=== PATIENT | female | born 1975 | race Caucasian/White ===

== ENCOUNTER 2017-01-14 22:01 | Inpatient (IN) | payer SELFPAY ==
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
[2017-01-14 22:28] LABS: % IMMATURE GRANULYOCYTES 0.6 % (0.0-1.1); ABSOLUTE IMMATURE GRANULOCYTES 0.11 10^3/uL (0.00-0.10); ADD DIFF? NO; ADD MORPH? NO; ADD SCAN? NO; ATYPICAL LYMPHOCYTE FLAG 0 (0-99); FRAGMENT RBC FLAG 0 (0-99); HEMATOCRIT 41.2 % (38.0-47.0); HEMOGLOBIN 14.8 g/dL (12.6-16.3); LEFT SHIFT FLG 0 (0-99); LIPEMIA HEMOLYSIS FLAG 90 (0-99); MEAN CELL HEMOGLOBIN 32.3 pg (27.9-34.1); MEAN CELL HEMOGLOBIN CONCENTR. 35.9 g/dL (32.4-36.7); MEAN PLATELET VOLUME 9.3 fL (8.7-11.7); PLATELET CLUMPS FLAG 0 (0-99); PLATELET COUNT 216 10^3/uL (150-400); RED BLOOD CELL COUNT 4.58 10^6/uL (4.18-5.33); RED CELL DISTRIBUTION WIDTH 12.1 % (11.5-15.2)
[2017-01-14 22:36] LABS: ANION GAP 14 mEq/L (8-16); CALCIUM 10.1 mg/dL (8.5-10.4); CARBON DIOXIDE 21 mEq/l (22-31); CHLORIDE 105 mEq/L (97-110); CREATININE 0.9 mg/dL (0.6-1.0); ETHANOL SERUM < 10 mg/dL (0-10); GLOMERULAR FILTRATION RATE > 60; GLUCOSE 116 mg/dL (70-100); POTASSIUM 3.8 mEq/L (3.5-5.2); SODIUM 140 mEq/L (134-144)
[2017-01-15] MEDS ORDERED: NICOTINE 14 MG/24 HR PATCH TD ONE (02:28)
[2017-01-15] MEDS ORDERED: NICOTINE POLACRILEX 2 MG GUM B PRN (09:07)
[2017-01-15] MEDS ORDERED: NICOTINE 21 MG/24 HR PATCH TD ONE (09:08)
[2017-01-15] MEDS ORDERED: ACETAMINOPHEN 500 MG TAB PO ONE (11:42)
[2017-01-15] MEDS ORDERED: IBUPROFEN 600 MG TAB PO ONE (15:32)
[2017-01-15] MEDS ORDERED: LORazepam 0.5 MG TAB PO PRN (19:54)
[2017-01-15] MEDS ORDERED: MAG HYDROX/AL HYDROX/SIMETH 30 ML UDCUP PO PRN (19:55)
[2017-01-15] MEDS ORDERED: MAGNESIUM HYDROXIDE 30 ML UDCUP PO PRN (19:55)
[2017-01-15] MEDS ORDERED: OLANZapine 10 MG TAB PO PRN (19:56)
[2017-01-15] MEDS: ACETAMINOPHEN 325 MG TAB PO PRN (20:46)
[2017-01-16] MEDS ORDERED: ALBUTEROL 60 PUFFS/8 GM MDI IH PRN (08:34)
[2017-01-16] MEDS: ACETAMINOPHEN 325 MG TAB PO PRN ×2 (08:39→20:57)
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
[2017-01-16] MEDS: NICOTINE POLACRILEX 2 MG GUM B PRN (19:07)
[2017-01-16] MEDS: OLANZapine DISINTEGR 10 MG TAB PO SCH (20:25)
[2017-01-16 21:35] LABS: COLOR YELLOW; LEUKOCYTE ESTERASE,URINE TRACE (NEGATIVE); NITRITE,URINE NEGATIVE (NEGATIVE)
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
[2017-01-17] MEDS: NICOTINE POLACRILEX 2 MG GUM B PRN ×2 (12:45→18:08)
--- NOTE | 2017-01-17 16:42 | SOAPPROG ---
SOAP Progress Note Assessment/Plan: Assessment: Plan: 01/17/17 16:36 DAY 3 30' UPDATE/EXAM: Nursing describes pt over last 24 hours as in control behaviorally , improved sleep pattern, less disorganized thought process, c/w cares and meds / on direct exam is indeed more coherent with more organized and reality- focussed thought pattern; is more disclosing about ongoing marital conflict; does report good sleep with using the Zyprexa 10 mg hs; thought pattern very concrete and impoverished but with less evidence for PI ASSESSMENT/PLAN: progress in resolving psychotic acuity and manic residual/ no change in meds and mangement; will expedite obtaining [facility] records and intake fr om [facility]; consider his involvement in speaker phone couples contacts Objective: Vital Signs Temp Pulse Resp BP Pulse Ox 36.5 C 90 12 114/2 L 93 01/17/17 06:00 01/17/17 06:00 01/17/17 06:00 01/17/17 06:00 01/17/17 06:00 ICD10 Worksheet Patient Problems: Problems Problem Status Onset Acute psychosis Acute Spontaneous vaginal delivery Acute
[2017-01-17] MEDS: OLANZapine DISINTEGR 10 MG TAB PO SCH (20:34)
[2017-01-18 06:23] VITALS: BP 100/58; PULSE 56; RESP 14; TEMP 98.4; O2SAT 96
--- NOTE | 2017-01-18 07:23 | SOAPPROG ---
SOVASYL Progress Note Assessment/Plan: Assessment: Plan: 01/17/17 16:36 DAY 3 30' UPDATE/EXAM: Nursing describes pt over last 24 hours as in control behaviorally , improved sleep pattern, less disorganized thought process, c/w cares and meds / on direct exam is indeed more coherent with more organized and reality- focussed thought pattern; is more disclosing about ongoing marital conflict; does report good sleep with using the Zyprexa 10 mg hs; thought pattern very concrete and impoverished but with less evidence for PI ASSESSMENT/PLAN: progress in resolving psychotic acuity and manic residual/ no change in meds and management; will expedite obtaining [facility] records and intake from [facility]; consider his involvement in speaker phone couples contacts 01/18/17 DAY UPDATE/EXAM: Objective: Vital Signs Temp Pulse Resp BP Pulse Ox 36.9 C 56 L 14 100/58 L 96 01/18/17 06:00 01/18/17 06:00 01/18/17 06:00 01/18/17 06:00 01/18/17 06:00 ICD10 Worksheet Patient Problems: Problems Problem Status Onset Acute psychosis Acute Spontaneous vaginal delivery Acute
[2017-01-18] MEDS: NICOTINE POLACRILEX 2 MG GUM B PRN ×3 (10:36→18:50)
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
[2017-01-18] MEDS: OLANZapine DISINTEGR 10 MG TAB PO SCH (21:20)
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
[2017-01-19] MEDS: NICOTINE POLACRILEX 2 MG GUM B PRN ×2 (11:05→14:22)
--- NOTE | 2017-01-19 16:35 | SOAPPROG ---
SOAP Progress Note Assessment/Plan: Assessment: Plan: 01/17/17 16:36 DAY UPDATE/EXAM: Nursing describes pt over last 24 hours as in control behaviorally , improved sleep pattern, less disorganized thought process, c/w cares and meds / on direct exam is indeed more coherent with more organized and reality- focussed thought pattern; is more disclosing about ongoing marital conflict; does report good sleep with using the Zyprexa 10 mg hs; thought pattern very concrete and impoverished but with less evidence for PI ASSESSMENT/PLAN: progress in resolving psychotic acuity and manic residual/ no change in meds and management; will expedite obtaining [facility] records and intake from [facility]; consider his involvement in speaker phone couples contacts 01/18/17 16:10 DAY UPDATE/EXAM: Nursing reports pt slept well again and is evidencing slightly improved organization to thought process - less tangential and less presence of IOR and c/w meds/cares more visible in milieu but resisting groups thus far/ brief contact as unit coverage is extended again today - pt indeed appears more stable affectively and thought process is better organized; pt understands speaker phone contact with [facility] is delayed secondary to time constrains INTAKE: [facility] records reveal pt was relatively noncompliant with outpt services and case close in 2011; 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 mentioned in records; vague references to substance abuse made; pt also has had multiple children removed from her care by protective services in their infancy; the children number at least 3 and have multiple fathers Assessment/PLAN: improving course descriptively with early phase improvement in affective stabilization and diminishing psychosis/ no change in medications and management plan; continue focus on restabilization and completing workup to inform dc planning 01/19/17 1622 DAY UPDATE/EXAM: Nuring reports pt slow to rouse this AM but then evidenced resumption of the descriptive improvement as seen over past several days/ on exam is alert and productively engage in contact with evidence again martín thought process organization improving; reinforced the value of applying for Medicaid and working out a dc plan reinvesting in connecting with [facility] ASSESSMENT/PLAN: continues to resolve the psychotic acuity present on admission / no change in current meds and management; continued attempts to reach family not successful and are necessary to move case into DC planning phase Objective: Vital Signs Temp Pulse Resp BP Pulse Ox 36.9 C 56 L 14 100/58 L 96 01/18/17 06:00 01/18/17 06:00 01/18/17 06:00 01/18/17 06:00 01/18/17 06:00 ICD10 Worksheet Patient Problems: Problems Problem Status Onset Acute psychosis Acute Spontaneous vaginal delivery Acute
[2017-01-19] MEDS: OLANZapine DISINTEGR 10 MG TAB PO SCH (20:59)
--- NOTE | 2017-01-20 06:59 | SOAPPROG ---
SOAP Progress Note Assessment/Plan: Assessment: Plan: 01/17/17 16:36 DAY UPDATE/EXAM: Nursing describes pt over last 24 hours as in control behaviorally , improved sleep pattern, less disorganized thought process, c/w cares and meds / on direct exam is indeed more coherent with more organized and reality- focussed thought pattern; is more disclosing about ongoing marital conflict; does report good sleep with using the Zyprexa 10 mg hs; thought pattern very concrete and impoverished but with less evidence for PI ASSESSMENT/PLAN: progress in resolving psychotic acuity and manic residual/ no change in meds and management; will expedite obtaining [facility] records and intake from [facility]; consider his involvement in speaker phone couples contacts 01/18/17 16:10 DAY UPDATE/EXAM: Nursing reports pt slept well again and is evidencing slightly improved organization to thought process - less tangential and less presence of IOR and c/w meds/cares more visible in milieu but resisting groups thus far/ brief contact as unit coverage is extended again today - pt indeed appears more stable affectively and thought process is better organized; pt understands speaker phone contact with [facility] is delayed secondary to time constrains INTAKE: [facility] records reveal pt was relatively noncompliant with outpt services and case close in 2011; 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 mentioned in records; vague references to substance abuse made; pt also has had multiple children removed from her care by protective services in their infancy; the children number at least 3 and have multiple fathers Assessment/PLAN: improving course descriptively with early phase improvement in affective stabilization and diminishing psychosis/ no change in medications and management plan; continue focus on restabilization and completing workup to inform dc planning 01/19/17 1622 DAY UPDATE/EXAM: Nuring reports pt slow to rouse this AM but then evidenced resumption of the descriptive improvement as seen over past several days/ on exam is alert and productively engage in contact with evidence again that thought process organization improving; reinforced the value of applying for Medicaid and working out a dc plan reinvesting in connecting with [facility] ASSESSMENT/PLAN: continues to resolve the psychotic acuity present on admission / no change in current meds and management; continued attempts to reach family not successful and are necessary to move case into DC planning phase 01/20/17 DAY UPDATE/EXAM: Objective: Vital Signs Temp Pulse Resp BP Pulse Ox 36.9 C 56 L 14 100/58 L 96 01/18/17 06:00 01/18/17 06:00 01/18/17 06:00 01/18/17 06:00 01/18/17 06:00 ICD10 Worksheet Patient Problems: Problems Problem Status Onset Acute psychosis Acute Spontaneous vaginal delivery Acute
--- NOTE | 2017-01-20 11:38 | SOAPPROG ---
SOAP Progress Note Assessment/Plan: Assessment: Plan: 01/17/17 16:36 DAY UPDATE/EXAM: Nursing describes pt over last 24 hours as in control behaviorally , improved sleep pattern, less disorganized thought process, c/w cares and meds / on direct exam is indeed more coherent with more organized and reality- focussed thought pattern; is more disclosing about ongoing marital conflict; does report good sleep with using the Zyprexa 10 mg hs; thought pattern very concrete and impoverished but with less evidence for PI ASSESSMENT/PLAN: progress in resolving psychotic acuity and manic residual/ no change in meds and management; will expedite obtaining [facility] records and intake from [facility]; consider his involvement in speaker phone couples contacts 01/18/17 16:10 DAY UPDATE/EXAM: Nursing reports pt slept well again and is evidencing slightly improved organization to thought process - less tangential and less presence of IOR and c/w meds/cares more visible in milieu but resisting groups thus far/ brief contact as unit coverage is extended again today - pt indeed appears more stable affectively and thought process is better organized; pt understands speaker phone contact with [facility] is delayed secondary to time constrains INTAKE: [facility] records reveal pt was relatively noncompliant with outpt services and case close in 2011; 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 mentioned in records; vague references to substance abuse made; pt also has had multiple children removed from her care by protective services in their infancy; the children number at least 3 and have multiple fathers Assessment/PLAN: improving course descriptively with early phase improvement in affective stabilization and diminishing psychosis/ no change in medications and management plan; continue focus on restabilization and completing workup to inform dc planning 01/19/17 1622 DAY UPDATE/EXAM: Nuring reports pt slow to rouse this AM but then evidenced resumption of the descriptive improvement as seen over past several days/ on exam is alert and productively engage in contact with evidence again that thought process organization improving; reinforced the value of applying for Medicaid and working out a dc plan reinvesting in connecting with [facility] ASSESSMENT/PLAN: continues to resolve the psychotic acuity present on admission / no change in current meds and management; continued attempts to reach family not successful and are necessary to move case into DC planning phase 01/20/17 11:32 DAY 6/ 30' UPDATE/EXAM: Nursing reports pt sustaining gain in recompensating; observed today evidencing no overt psychosis, visible in milieu, c/w cares/meds; selectively attending groups/ on direct exam is cooperative and conversant; agrees going home to is best idea and "we both needed a little break" vs yesterday her thought of finding another place to live at DC; able to discuss DC plans and goals to prepare for DC 01/24 including initiating [facility] application; does not appear to be actively psychotic in session ASSESSMENT/PLAN: continues improving course/ no change in meds and managment other than Nursing actively reinforcing more social contact and group attendance Objective: Vital Signs Temp Pulse Resp BP Pulse Ox 36.9 C 56 L 14 100/58 L 96 01/18/17 06:00 01/18/17 06:00 01/18/17 06:00 01/18/17 06:00 01/18/17 06:00 ICD10 Worksheet Patient Problems: Problems Problem Status Onset Acute psychosis Acute Spontaneous vaginal delivery Acute
[2017-01-20] MEDS: NICOTINE POLACRILEX 2 MG GUM B PRN ×2 (12:30→18:02)
[2017-01-20] MEDS: NICOTINE 21 MG/24 HR PATCH TD SCH (13:13)
[2017-01-20] MEDS: OLANZapine DISINTEGR 10 MG TAB PO SCH (21:21)
--- NOTE | 2017-01-21 07:15 | SOAPPROG ---
SOAP Progress Note Assessment/Plan: Assessment: Plan: 01/17/17 16:36 DAY UPDATE/EXAM: Nursing describes pt over last 24 hours as in control behaviorally , improved sleep pattern, less disorganized thought process, c/w cares and meds / on direct exam is indeed more coherent with more organized and reality- focussed thought pattern; is more disclosing about ongoing marital conflict; does report good sleep with using the Zyprexa 10 mg hs; thought pattern very concrete and impoverished but with less evidence for PI ASSESSMENT/PLAN: progress in resolving psychotic acuity and manic residual/ no change in meds and management; will expedite obtaining [facility] records and intake from [facility]; consider his involvement in speaker phone couples contacts 01/18/17 16:10 DAY UPDATE/EXAM: Nursing reports pt slept well again and is evidencing slightly improved organization to thought process - less tangential and less presence of IOR and c/w meds/cares more visible in milieu but resisting groups thus far/ brief contact as unit coverage is extended again today - pt indeed appears more stable affectively and thought process is better organized; pt understands speaker phone contact with [facility] is delayed secondary to time constrains INTAKE: [facility] records reveal pt was relatively noncompliant with outpt services and case close in 2011; 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 mentioned in records; vague references to substance abuse made; pt also has had multiple children removed from her care by protective services in their infancy; the children number at least 3 and have multiple fathers Assessment/PLAN: improving course descriptively with early phase improvement in affective stabilization and diminishing psychosis/ no change in medications and management plan; continue focus on restabilization and completing workup to inform dc planning 01/19/17 1622 DAY UPDATE/EXAM: Nuring reports pt slow to rouse this AM but then evidenced resumption of the descriptive improvement as seen over past several days/ on exam is alert and productively engage in contact with evidence again that thought process organization improving; reinforced the value of applying for Medicaid and working out a dc plan reinvesting in connecting with [facility] ASSESSMENT/PLAN: continues to resolve the psychotic acuity present on admission / no change in current meds and management; continued attempts to reach family not successful and are necessary to move case into DC planning phase 01/20/17 11:32 DAY UPDATE/EXAM: Nursing reports pt sustaining gain in recompensating; observed today evidencing no overt psychosis, visible in milieu, c/w cares/meds; selectively attending groups/ on direct exam is cooperative and conversant; agrees going home to is best idea and "we both needed a little break" vs yesterday her thought of finding another place to live at DC; able to discuss DC plans and goals to prepare for DC 01/24 including initiating [facility] application; does not appear to be actively psychotic in session ASSESSMENT/PLAN: continues improving course/ no change in meds and managment other than Nursing actively reinforcing more social contact and group attendance DAY UPDATE/EXAM: Objective: Vital Signs Temp Pulse Resp BP Pulse Ox 36.9 C 56 L 14 100/58 L 96 01/18/17 06:00 01/18/17 06:00 01/18/17 06:00 01/18/17 06:00 01/18/17 06:00 ICD10 Worksheet Patient Problems: Problems Problem Status Onset Acute psychosis Acute Spontaneous vaginal delivery Acute
[2017-01-21] MEDS: NICOTINE 21 MG/24 HR PATCH TD SCH (08:44)
[2017-01-21] MEDS: NICOTINE POLACRILEX 2 MG GUM B PRN (08:44)
[2017-01-21] MEDS: OLANZapine DISINTEGR 10 MG TAB PO SCH (21:16)
--- NOTE | 2017-01-22 08:17 | SOAPPROG ---
SOAP Progress Note Assessment/Plan: Assessment: Plan: 01/17/17 16:36 DAY UPDATE/EXAM: Nursing describes pt over last 24 hours as in control behaviorally , improved sleep pattern, less disorganized thought process, c/w cares and meds / on direct exam is indeed more coherent with more organized and reality- focussed thought pattern; is more disclosing about ongoing marital conflict; does report good sleep with using the Zyprexa 10 mg hs; thought pattern very concrete and impoverished but with less evidence for PI ASSESSMENT/PLAN: progress in resolving psychotic acuity and manic residual/ no change in meds and management; will expedite obtaining [facility] records and intake from [facility]; consider his involvement in speaker phone couples contacts 01/18/17 16:10 DAY UPDATE/EXAM: Nursing reports pt slept well again and is evidencing slightly improved organization to thought process - less tangential and less presence of IOR and c/w meds/cares more visible in milieu but resisting groups thus far/ brief contact as unit coverage is extended again today - pt indeed appears more stable affectively and thought process is better organized; pt understands speaker phone contact with [facility] is delayed secondary to time constrains INTAKE: [facility] records reveal pt was relatively noncompliant with outpt services and case close in 2011; 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 mentioned in records; vague references to substance abuse made; pt also has had multiple children removed from her care by protective services in their infancy; the children number at least 3 and have multiple fathers Assessment/PLAN: improving course descriptively with early phase improvement in affective stabilization and diminishing psychosis/ no change in medications and management plan; continue focus on restabilization and completing workup to inform dc planning 01/19/17 1622 DAY UPDATE/EXAM: Nursing reports pt slow to rouse this AM but then evidenced resumption of the descriptive improvement as seen over past several days/ on exam is alert and productively engage in contact with evidence again that thought process organization improving; reinforced the value of applying for Medicaid and working out a dc plan reinvesting in connecting [facility] ASSESSMENT/PLAN: continues to resolve the psychotic acuity present on admission / no change in current meds and management; continued attempts to reach family not successful and are necessary to move case into DC planning phase 01/20/17 11:32 DAY UPDATE/EXAM: Nursing reports pt sustaining gain in re-compensating; observed today evidencing no overt psychosis, visible in milieu, c/w cares/meds; selectively attending groups/ on direct exam is cooperative and conversant; agrees going home to is best idea and "we both needed a little break" vs yesterday her thought of finding another place to live at DC; able to discuss DC plans and goals to prepare for DC 01/24 including initiating [facility] application; does not appear to be actively psychotic in session ASSESSMENT/PLAN: continues improving course/ no change in meds and management other than Nursing actively reinforcing more social contact and group attendance DAY UPDATE/EXAM: Nursing reports over last 24 hr cycle pt continues descriptive progress - minimal residual IOR, improved social ego functions although remains isolative with incremental more milieu visibility and group attendance; c/w cares and meds; cooperative with CC in initiating CA[facility] application. Presents as calm and conversant at baseline level of concreteness; DC planning again reviewed and her followup with resuming [facility] services again emphasized. ASSESSMENT/PLAN: progressing well in mental status re-compensation to well baseline; poor insight about the nature of her illness/ no change in meds or management plan; focus on preparing pt for DC scheduled for 01/24 with [facility] f/u on 01/24; hopefully family contact over weekend (MOC/HOC) to "desensitize" pt's reassociating with Objective: Vital Signs Temp Pulse Resp BP Pulse Ox 36.9 C 56 L 14 100/58 L 96 01/18/17 06:00 01/18/17 06:00 01/18/17 06:00 01/18/17 06:00 01/18/17 06:00 ICD10 Worksheet Patient Problems: Problems Problem Status Onset Acute psychosis Acute Spontaneous vaginal delivery Acute
[2017-01-22] MEDS: NICOTINE 21 MG/24 HR PATCH TD SCH (10:20)
[2017-01-22] MEDS: NICOTINE POLACRILEX 2 MG GUM B PRN (19:48)
[2017-01-22] MEDS: OLANZapine DISINTEGR 10 MG TAB PO SCH (20:56)
--- NOTE | 2017-01-22 23:53 | SOAPPROG ---
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 attending groups, no acute issues Pt reports feeling better on current med, hoping to go home after weekend. states "my misses me", likely because she has been away now in hospital , and that her uncle's service dog (whom she has been borrowing) also misses her and hasn't been eating. States his service dog recognizes when she's anxious and comes to sit on her lap. Denies depression, sophie or psychotic sxs. Wishes her would attend couples therapy, but does feel she could benefit from indiv therapy after d/c. no physical c/o and denied any med s/e. MSE: casually dressed, hair wet and combed back, wearing glasses crooked. speech nml rate/vol, talkative not pressured, engaging. mood "better", affect euthymic, denied ah/vh or any si/hi. PLAN: cont zyprexa 10mg qhs anticip d/c next week Objective: Vital Signs Temp Pulse Resp BP Pulse Ox 36.9 C 56 L 14 100/58 L 96 01/18/17 06:00 01/18/17 06:00 01/18/17 06:00 01/18/17 06:00 01/18/17 06:00 - Time Spent With Patient Time Spent With Patient: 35min - Pending Discharge Pending Discharge Within 24 Hours: No Pending Discharge Within 48 Hours: No ICD10 Worksheet Patient Problems: Problems Problem Status Onset Acute psychosis Acute Spontaneous vaginal delivery Acute
[2017-01-23] MEDS: NICOTINE 21 MG/24 HR PATCH TD SCH (10:28)
[2017-01-23] MEDS: NICOTINE POLACRILEX 2 MG GUM B PRN ×2 (11:17→19:42)
[2017-01-23] MEDS: OLANZapine DISINTEGR 10 MG TAB PO SCH (22:24)
--- NOTE | 2017-01-23 22:29 | SOAPPROG ---
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 attending groups, no acute issues Pt reports feeling better on current med, hoping to go home after weekend. states "my misses me", likely because she has been away now in hospital , and that her uncle's service dog (whom she has been borrowing) also misses her and hasn't been eating. States his service dog recognizes when she's anxious and comes to sit on her lap. Denies depression, sophie or psychotic sxs. Wishes her would attend couples therapy, but does feel she could benefit from indiv therapy after d/c. no physical c/o and denied any med s/e. MSE: casually dressed, hair wet and combed back, wearing glasses crooked. speech nml rate/vol, talkative not pressured, engaging. mood "better", affect euthymic, denied ah/vh or any si/hi. PLAN: cont zyprexa 10mg qhs anticip d/c next week 01/23/2017 13:00 per pt, she slept well. coming to visit on unit. also states mother visited which felt supportive. stated she felt a little "groggy" this AM, otherwise denied med s/e. does note some incr appetite, however. reviewed need for outpt f/u after d/c, and also to obtain PCP (has gone to [facility]). no physical c/o. advised on risks/benefits of zyprexa, including metabolic. pt volunteers that she used to be on insulin for DM during early teens, but states she "grew out of it" and didn't need insulin nor have DM dx since. MSE: casually dressed, hair neatly brushed back, wearing glasses, good eye contact speech nml rate/vol, engaging. mood "fine", affect appropriate range, denied any ah/vh or any si/hi. i/j both seem fair. PLAN: cont zyprexa 10mg qhs anticip d/c Mon? Objective: Vital Signs Temp Pulse Resp BP Pulse Ox 36.9 C 56 L 14 100/58 L 96 01/18/17 06:00 01/18/17 06:00 01/18/17 06:00 01/18/17 06:00 01/18/17 06:00 - Time Spent With Patient Time Spent With Patient: 20min - Pending Discharge Pending Discharge Within 24 Hours: Yes Pending Discharge Date: 01/24/17 Pending Discharge Time: 11:00 ICD10 Worksheet Patient Problems: Problems Problem Status Onset Acute psychosis Acute Spontaneous vaginal delivery Acute
--- NOTE | 2017-01-24 06:34 | SOAPPROG ---
SOAP Progress Note Assessment/Plan: Assessment: Plan: 01/17/17 16:36 DAY UPDATE/EXAM: Nursing describes pt over last 24 hours as in control behaviorally , improved sleep pattern, less disorganized thought process, c/w cares and meds / on direct exam is indeed more coherent with more organized and reality- focussed thought pattern; is more disclosing about ongoing marital conflict; does report good sleep with using the Zyprexa 10 mg hs; thought pattern very concrete and impoverished but with less evidence for PI ASSESSMENT/PLAN: progress in resolving psychotic acuity and manic residual/ no change in meds and management; will expedite obtaining [facility] records and intake from [facility]; consider his involvement in speaker phone couples contacts 01/18/17 16:10 DAY UPDATE/EXAM: Nursing reports pt slept well again and is evidencing slightly improved organization to thought process - less tangential and less presence of IOR and c/w meds/cares more visible in milieu but resisting groups thus far/ brief contact as unit coverage is extended again today - pt indeed appears more stable affectively and thought process is better organized; pt understands speaker phone contact with [facility] is delayed secondary to time constrains INTAKE: [facility] records reveal pt was relatively noncompliant with outpt services and case close in 2011; 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 mentioned in records; vague references to substance abuse made; pt also has had multiple children removed from her care by protective services in their infancy; the children number at least 3 and have multiple fathers Assessment/PLAN: improving course descriptively with early phase improvement in affective stabilization and diminishing psychosis/ no change in medications and management plan; continue focus on restabilization and completing workup to inform dc planning 01/19/17 1622 DAY UPDATE/EXAM: Nursing reports pt slow to rouse this AM but then evidenced resumption of the descriptive improvement as seen over past several days/ on exam is alert and productively engage in contact with evidence again that thought process organization improving; reinforced the value of applying for Medicaid and working out a dc plan reinvesting in connecting with [facility] ASSESSMENT/PLAN: continues to resolve the psychotic acuity present on admission / no change in current meds and management; continued attempts to reach family not successful and are necessary to move case into DC planning phase 01/20/17 11:32 DAY UPDATE/EXAM: Nursing reports pt sustaining gain in re-compensating; observed today evidencing no overt psychosis, visible in milieu, c/w cares/meds; selectively attending groups/ on direct exam is cooperative and conversant; agrees going home to is best idea and "we both needed a little break" vs yesterday her thought of finding another place to live at DC; able to discuss DC plans and goals to prepare for DC 01/24 including initiating CAID application; does not appear to be actively psychotic in session ASSESSMENT/PLAN: continues improving course/ no change in meds and management other than Nursing actively reinforcing more social contact and group attendance DAY UPDATE/EXAM: Nursing reports over last 24 hr cycle pt continues descriptive progress - minimal residual IOR, improved social ego functions although remains isolative with incremental more milieu visibility and group attendance; c/w cares and meds; cooperative with CC in initiating CAID application. Presents as calm and conversant at baseline level of concreteness; DC planning again reviewed and her followup with resuming [facility] services again emphasized. ASSESSMENT/PLAN: progressing well in mental status re-compensation to well baseline; poor insight about the nature of her illness/ no change in meds or management plan; focus on preparing pt for DC scheduled for 01/24 with [facility] f/u on 01/24; hopefully family contact over weekend (MOC/HOC) to "desensitize" pt's reassociating with 01/24/17 DAY 10 UPDATE: Objective: Vital Signs Temp Pulse Resp BP Pulse Ox 36.9 C 56 L 14 100/58 L 96 01/18/17 06:00 01/18/17 06:00 01/18/17 06:00 01/18/17 06:00 01/18/17 06:00 ICD10 Worksheet Patient Problems: Problems Problem Status Onset Acute psychosis Acute Spontaneous vaginal delivery Acute
--- NOTE | 2017-01-24 11:35 | SOAPPROG ---
SOAP Progress Note Assessment/Plan: Assessment: Plan: 01/17/17 16:36 DAY UPDATE/EXAM: Nursing describes pt over last 24 hours as in control behaviorally , improved sleep pattern, less disorganized thought process, c/w cares and meds / on direct exam is indeed more coherent with more organized and reality- focussed thought pattern; is more disclosing about ongoing marital conflict; does report good sleep with using the Zyprexa 10 mg hs; thought pattern very concrete and impoverished but with less evidence for PI ASSESSMENT/PLAN: progress in resolving psychotic acuity and manic residual/ no change in meds and management; will expedite obtaining [facility] records and intake from [facility]; consider his involvement in speaker phone couples contacts 01/18/17 16:10 DAY UPDATE/EXAM: Nursing reports pt slept well again and is evidencing slightly improved organization to thought process - less tangential and less presence of IOR and c/w meds/cares more visible in milieu but resisting groups thus far/ brief contact as unit coverage is extended again today - pt indeed appears more stable affectively and thought process is better organized; pt understands speaker phone contact with [facility] is delayed secondary to time constrains INTAKE: [facility] records reveal pt was relatively noncompliant with outpt services and case close in 2011; 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 mentioned in records; vague references to substance abuse made; pt also has had multiple children removed from her care by protective services in their infancy; the children number at least 3 and have multiple fathers Assessment/PLAN: improving course descriptively with early phase improvement in affective stabilization and diminishing psychosis/ no change in medications and management plan; continue focus on restabilization and completing workup to inform dc planning 01/19/17 1622 DAY UPDATE/EXAM: Nursing reports pt slow to rouse this AM but then evidenced resumption of the descriptive improvement as seen over past several days/ on exam is alert and productively engage in contact with evidence again that thought process organization improving; reinforced the value of applying for Medicaid and working out a dc plan reinvesting in connecting with [facility] ASSESSMENT/PLAN: continues to resolve the psychotic acuity present on admission / no change in current meds and management; continued attempts to reach family not successful and are necessary to move case into DC planning phase 01/20/17 11:32 DAY UPDATE/EXAM: Nursing reports pt sustaining gain in re-compensating; observed today evidencing no overt psychosis, visible in milieu, c/w cares/meds; selectively attending groups/ on direct exam is cooperative and conversant; agrees going home to is best idea and "we both needed a little break" vs yesterday her thought of finding another place to live at DC; able to discuss DC plans and goals to prepare for DC 01/24 including initiating CAID application; does not appear to be actively psychotic in session ASSESSMENT/PLAN: continues improving course/ no change in meds and management other than Nursing actively reinforcing more social contact and group attendance DAY UPDATE/EXAM: Nursing reports over last 24 hr cycle pt continues descriptive progress - minimal residual IOR, improved social ego functions although remains isolative with incremental more milieu visibility and group attendance; c/w cares and meds; cooperative with CC in initiating CAID application. Presents as calm and conversant at baseline level of concreteness; DC planning again reviewed and her followup with resuming [facility] services again emphasized. ASSESSMENT/PLAN: progressing well in mental status re-compensation to well baseline; poor insight about the nature of her illness/ no change in meds or management plan; focus on preparing pt for DC scheduled for 01/24 with [facility] f/u on 01/24; hopefully family contact over weekend (MOC/HOC) to "desensitize" pt's reassociating with 01/24/17 DAY 10 UPDATE: Objective: Vital Signs Temp Pulse Resp BP Pulse Ox 36.9 C 56 L 14 100/58 L 96 01/18/17 06:00 01/18/17 06:00 01/18/17 06:00 01/18/17 06:00 01/18/17 06:00 ICD10 Worksheet Patient Problems: Problems Problem Status Onset Acute psychosis Acute Spontaneous vaginal delivery Acute
[2017-01-24] MEDS ORDERED: OLANZapine 10 MG TAB PO SCH (21:00)
--- NOTE | 2017-01-25 06:35 | SOAPPROG ---
SOAP Progress Note Assessment/Plan: Assessment: Plan: 01/17/17 16:36 DAY UPDATE/EXAM: Nursing describes pt over last 24 hours as in control behaviorally , improved sleep pattern, less disorganized thought process, c/w cares and meds / on direct exam is indeed more coherent with more organized and reality- focussed thought pattern; is more disclosing about ongoing marital conflict; does report good sleep with using the Zyprexa 10 mg hs; thought pattern very concrete and impoverished but with less evidence for PI ASSESSMENT/PLAN: progress in resolving psychotic acuity and manic residual/ no change in meds and management; will expedite obtaining [facility] records and intake from [facility]; consider his involvement in speaker phone couples contacts 01/18/17 16:10 DAY UPDATE/EXAM: Nursing reports pt slept well again and is evidencing slightly improved organization to thought process - less tangential and less presence of IOR and c/w meds/cares more visible in milieu but resisting groups thus far/ brief contact as unit coverage is extended again today - pt indeed appears more stable affectively and thought process is better organized; pt understands speaker phone contact with [facility] is delayed secondary to time constrains INTAKE: [facility] records reveal pt was relatively noncompliant with outpt services and case close in 2011; 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 mentioned in records; vague references to substance abuse made; pt also has had multiple children removed from her care by protective services in their infancy; the children number at least 3 and have multiple fathers Assessment/PLAN: improving course descriptively with early phase improvement in affective stabilization and diminishing psychosis/ no change in medications and management plan; continue focus on restabilization and completing workup to inform dc planning 01/19/17 1622 DAY UPDATE/EXAM: Nursing reports pt slow to rouse this AM but then evidenced resumption of the descriptive improvement as seen over past several days/ on exam is alert and productively engage in contact with evidence again that thought process organization improving; reinforced the value of applying for Medicaid and working out a dc plan reinvesting in connecting with [facility] ASSESSMENT/PLAN: continues to resolve the psychotic acuity present on admission / no change in current meds and management; continued attempts to reach family not successful and are necessary to move case into DC planning phase 01/20/17 11:32 UPDATE/EXAM: Nursing reports pt sustaining gain in re-compensating; observed today evidencing no overt psychosis, visible in milieu, c/w cares/meds; selectively attending groups/ on direct exam is cooperative and conversant; agrees going home to is best idea and "we both needed a little break" vs yesterday her thought of finding another place to live at DC; able to discuss DC plans and goals to prepare for DC 01/24 including initiating CAID application; does not appear to be actively psychotic in session ASSESSMENT/PLAN: continues improving course/ no change in meds and management other than Nursing actively reinforcing more social contact and group attendance DAY UPDATE/EXAM: Nursing reports over last 24 hr cycle pt continues descriptive progress - minimal residual IOR, improved social ego functions although remains isolative with incremental more milieu visibility and group attendance; c/w cares and meds; cooperative with CC in initiating CAID application. Presents as calm and conversant at baseline level of concreteness; DC planning again reviewed and her followup with resuming [facility] services again emphasized. ASSESSMENT/PLAN: progressing well in mental status re-compensation to well baseline; poor insight about the nature of her illness/ no change in meds or management plan; focus on preparing pt for DC scheduled for 01/24 with [facility] f/u on 01/24; hopefully family contact over weekend (MOC/HOC) to "desensitize" pt's reassociating with 01/24/17 Brief DC Note DAY UPDATE: Nursing reports over weekend pt continued to recompensate with minimal evidence for overt psychosis. c/w cares and meds, stable sleep time, improving self-care, increasing comfort and time in milieu, selective group attendance ON EXAM: presents as calm, cooperative, conversant; affirmed progressive stabilization progress; no overt thought disorder; reality-focussed thought process; able to identify goals a/w followup treatment; reported positive family visits over weekend with mother and and readiness for DC today ASSESSMENT/PLAN: stable for dc today DC to return home to ; mother to drive pt after p/u on unit f/u with [facility] in scheduled intake tomorrow DC medications - Zyprexa 10 mg / day supply given Objective: Vital Signs Temp Pulse Resp BP Pulse Ox 36.9 C 56 L 14 100/58 L 96 04/25/17 06:00 01/18/17 06:00 01/18/17 06:00 01/18/17 06:00 01/18/17 06:00 ICD10 Worksheet Patient Problems: Problems Problem Status Onset Acute psychosis Acute Spontaneous vaginal delivery Acute
--- NOTE | 2017-01-25 08:59 | BDS ---
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 2. Rule out Major Psychotic Disorder on the axis between Bipolar Disorder and Schizoaffective Disorder. AXIS II: Prominent traits including aggressivity, entitlement, impulse dyscontrol. AXIS III: 1. No active medical problems. 2. S/P history of diabetes mellitus diagnosis-question type; blood glucose 116 on admission. 3. HIV-positive screens per history. 4. History of hepatitis B infection. 5. Peripheral neuropathy. 6. Asthma-stable. AXIS IV: Exacerbation of chronic conflictual relationship between patient and common-law ; extended absence of psychiatric treatment in the community including absence of maintenance psychiatric medication management. AXIS V: Discharge GAF 45. DISPOSITION: 1. Patient discharged to return home to live with her and transported by her mother on the day of discharge. 2. Follow up intake appointment with [facility] on 01/25 at 11 o'clock. 3. DISCHARGE MEDICATIONS: Zyprexa 10 mg HS; patient given 30 day supply at discharge. 4. PATIENT PLAN: To resume part-time employment at former jobs. REASON FOR ADMISSION: As referenced, the patient had a chronic history for affective instability and psychotic vulnerability. She had been remotely diagnosed as suffering from a Bipolar Disorder. She had been an open client with [facility] remotely but not been treated by [facility] or other psychiatric treatment resources for at least several years. She had also not taken psychiatric medication for an extended time prior to this admission. On the day of her admission the patient called 911 from her home, complaining of her aggressing upon her. When the police arrived, they found the patient in an agitated and disorganized state. Patient's and mother were also present and described her as decompensating for a period of 1-2 weeks prior to admission, evidencing manic and psychotic elements in her mental status as per their report to the police. EMS brought the patient to the hospital; en route, the patient became aggressively dyscontrolled and required restraint in the ambulance. Upon arrival in the emergency room, the patient initially presented with motoric agitation and yelling behaviors but calmed sufficiently to cooperate with the medical and psychiatric assessment and did not require emergent psychoactive medications in the emergency room. Patient's medical assessment was unremarkable associated with her physical exams and initial lab screens. Following psychiatric assessment by [facility] in which she was found to show significant affective lability, loosened associations and hyperverbal speech-she was deemed gravely disabled and sent on to [place] on an M1 hold. SIGNIFICANT MEDICAL FINDINGS: Physical exam in the emergency room and follow up exam per medical records auditor on revealed no focal or systemic acuity. Lab screens included a CBC, BMP, beta HCG, toxic screen and blood alcohol level. All life screens were unremarkable and/or within normal limits. Patient 's blood glucose, nonfasting, was 116. Patient remained medically stable throughout her course of inpatient psychiatric treatment. HOSPITAL COURSE: The patient engaged her psychiatric treatment plan including applied psychiatric nursing care plan, daily workup and reintegrated therapeutic sessions with myself in a cooperative and conversant manner. She did remain relatively isolative throughout her stay. Her visibility in the community milieu did gradually increase. She attended a few selective groups. Medications were managed closely including use of Zyprexa 10 mg at h.s. and q.4h p.r.n. Her mental status steadily cleared the affective and psychotic instability with complete resolution of her affective lability and paranoid ideation. Thought organization reflected resolution of loosened associations. Her baseline mental status emerged and evidenced extremely concrete thinking, non-reflectiveness, but with an understanding of her improvement and the need for followup treatment including the use of medication. She was able to ally with a followup case opening with [facility]; intake appointment was scheduled the day following discharge as referenced below. With sufficient stabilization the patient was deemed safe for discharge. Facilitating patient's recovery was the presence of family support including 2 successful visits by mother and in the weekend preceding her discharge. CONDITION ON DISCHARGE: Mental status exam: On final contact the patient presented as calm, cooperative, and conversant. There was no evidence of her earlier psychosis. Patient affirmed her alliance with her followup treatment; medications were discussed; safety plan discussed; patient's affect was appropriate in the final session and she was deemed stable for discharge RISKS: Patient was deemed low risk for self harm, low risk for harm to others, and low risk for inability to manage safely in the community. ASSETS: Patient's and mother endorsed her treatment; patient left with motivation to follow up in reopening her case with P; patient understood at discharge the importance of compliance with medication and sustaining her outpatient psychiatric treatment plan. DISCHARGE MEDICATIONS: Zyprexa 10 mg p.o. HS; 30 day supply given at discharge. DISCHARGE LEGAL STATUS: Determination of short-term certification. /[id number]/MODL MTDD
== END 2017-01-24 13:45 | disposition home or self-care (01) | DRG 885 ==
LOC: BBEH 01-15 17:35
PROVIDERS: ADMIT Psychiatry & Neurology Psychiatry; ATTEND Psychiatry & Neurology Psychiatry
DX: F23 Brief psychotic disorder (principal); F31.9 Bipolar disorder, unspecified; F25.9 Schizoaffective disorder, unspecified; B20 Human immunodeficiency virus [HIV] disease; B19.10 Unspecified viral hepatitis B without hepatic coma; F17.210 Nicotine dependence, cigarettes, uncomplicated; E11.40 Type 2 diabetes mellitus with diabetic neuropathy, unspecified; J45.909 Unspecified asthma, uncomplicated; Z88.0 Allergy status to penicillin; Z91.19 Patient's noncompliance with other medical treatment and regimen
CPT/HCPCS: 80305; G0480

== ENCOUNTER → 2017-12-12 | Outpatient (CLI) | payer SELFPAY | LOC: FIMAGING 12:04 | PROVIDERS: ATTEND Family Medicine | DX: O09.523 Supervision of elderly multigravida, third trimester (principal); Z3A.37 37 weeks gestation of pregnancy ==

== ENCOUNTER 2018-01-29 13:10 | Observation (INO) | payer SELFPAY ==
--- NOTE | 2018-01-29 13:56 | PDGENHP ---
History and Physical - Chief Complaint EMS Transfer - Unattended home , unresponsive - History of Present Illness This is a 42 yo female, today at 38w4d by DHARMESH of 02/08/18 which was established by [facility] anatomy scan (first US of the ) at 31w5d performed by Otto Little (records in [facility]). Full obstetrical history below, but did not having any care until 30 wks. Complex story with regard to this delivery -Briefly the patient seems to have not wanted anyone to attend the as she was worried that CMS would take away this baby as they have her 5 prior children (all 's at term, one questionably , pre pt report) . She began to labor at home this morning and ultimately delivered the baby's head while sitting on the toilet. The shoulders did not deliver right away and some long period of time went by as the patient tried to "pull" the baby out, transferred herself to the ground and tried again, got into a full bathtub and tried to pull the baby out underwater. Ultimately a friend of the pt came to the scene and pulled the baby out, also called EMS around the same time. Per the patient's report it a long period of time between delivery of head and delivery of the rest of the body. She reports that the baby never cried, moved , breathed, or had any tone at any time after delivery of the body. Ultimately EMS clamped and cut the cord and began resuscitative efforts on baby at the scene, and transported mom to [facility] with placenta still in situ, reportedly bleeding. See procedure note for her assessment on arrival - in short a manually expressed her placenta with ease, her bleeding was minimal, and I repaired a 2nd degree perineal laceration. The patient has been then doing fine medically since then, being interviewed by police and [facility]. We did receive limited records from [facility]. Jodi has a known mental health history and has been homeless for years, also h/o substance abuse. She has had all five prior children removed by [facility] after . The only documented mental health information we have is in the context of an involuntary admission to this mental health unit spring for manic behavior - ultimately diagnosed with bipolar disorder with manic features, and low cognitive functioning. She does not report being on any psych meds and her records confirm that. With regard to - no care until 12/06/17 (30 wks) with [facility]. Had full PNL drawn at that time - all normal as below including UDS clean. Had MFM consult that's in our system showing normal anatomy scan (limited due to advanced GA), DHARMESH reset to 02/08/18. Pt declined aneuploidy screening due to AMA , was recommended to delivery by DHARMESH and get testing in the clinic which she did get some of which was reassuring. Rh negative and did get RhoGam at 30 wks first office visit. GBS negative per their records, well controlled asthma. There are reports that the pt is HIV and Hep B positive in H&P's in [facility], but that testing was negative this and pt denies ever being positive for those. Labs (12/06/17, [facility]): B Neg Ab Neg H/H 12.1/34.1 Rubella Imm RPR NR UCx Neg HBsAg Neg HIV Neg GC/C Neg No GDM screening (late care) Hgb A1C 5.1 History Information - Allergies/Home Medication List Allergies/Adverse Reactions: Penicillins Allergy (Severe, Verified 01/14/17 22:40) THROAT SWELLS, RASH kiwi Allergy (Verified 01/15/17 20:04) THROAT SWELLS mushroom Allergy (Verified 01/15/17 20:04) THROAT SWELLS turkey Allergy (Verified 01/15/17 20:04) THROAT SWELLS I have personally reviewed and updated: medical history, social history Past Medical History: Bipolar d/o with manic features, low cognitive functioning , h/o substance abuse, well controlled asthma, current smoker - Surgical History Reports: no pertinent surgical hx - Family History Positive for: non-pertinent - Social History Smoking Status: Current every day smoker Tobacco Use: Cigarettes Review of Systems Review of Systems: ROS: 10pt was reviewed & negative except for what was stated in HPI & below Physical Exam Physical Exam: On presentation the patient is supine on EMS gurney. Appears alert, but pale, tired. Agitated. Abdomen is soft, post-. Uterine fundus is palpable first 2 below the umbilicus. Perineum is bloody, 2nd degree perineal laceration. Placenta still in situ with clamped umbilical cord hanging out of the vagina. Assessment & Plan Assessment: 42 yo now presents as EMS transfer. Pt delivered at home on the toilet and apparently had a prolonged shoulder dystocia and the baby was ultimately delivered without any tone, breathing, or spontaneous movements. Reportedly EMS began resuscitation efforts on the scene (baby never had signs of life as far as I know) which continued in the ambulance and in the ER, but the baby was ultimately effectively pronounced DOA. Placenta delivered here, perineal laceration repaired and basic labs drawn. CMS and police here to interview patient about today's events. Mom is medically stable at the time of this writing. Plan: Will plan to observe mom for now. Could be appropriate for discharge later today vs observation overnight and dc in the AM. No major medical problems or medications to continue now as far as we know or the patient reports. She will need RhoGam due to Rh neg status, unclear if we can/will get ABORh testing on blood.
[2018-01-29] MEDS ORDERED: HYDROCORTISONE 0.5% CREAM TP PRN (13:57)
[2018-01-29] MEDS ORDERED: SIMETHICONE 80 MG TAB CHEW PO PRN (13:57)
[2018-01-29] MEDS ORDERED: ACETAMINOPHEN 325 MG TAB PO PRN (13:57)
--- NOTE | 2018-01-29 13:57 | SUROPNOTE ---
[facility] Operative Report - Surgery Date of Operation: 01/29/18 Surgeon: Anil Cho Legal Job Titles: None Anesthesiologist: Curt Regalado MD Anesthesia: IV Sedation Pre-op Diagnosis: Retained placenta, 2nd degree perineal obstetrical laceration Post-op Diagnosis: Same Procedure: Exam under anesthesia, removal of placenta, repair of perineal laceration Findings: Placenta in situ, 2nd degree perineal laceration Inf/Abcess present in the surg proc area at time of surgery?: No EBL: 50cc from this procedure Complications: None Specimen(s): Placenta will be sent to path, cord blood was not collected. Technique: Pt brought to OR directly from ER and transferred to OR table from EMS [facility]. Positioned in low lithotomy in Duran stirrups. Anesthesia present to give IV sedation w/ Propofol. Examined at that time. Gentle fundal pressure and traction on the cord allowed the placenta to deliver without issue, seemed to have been sitting in the cervix/upper vagina. Placenta examined briefly - intact, cord normal. Eccentric cord insertion. Firm fundal massage demonstrated minimal uterine bleeding, firm contracted tone. Perineum examined and laceration repaired with 3-0 vicryl in standard running fashion. Counts announced as correct at the conclusion of the case, I was scrubbed and present throughout.
[2018-01-29] MEDS ORDERED: OXYTOCIN/RINGERS LACTATE 1,000 ML IV SCH (14:00)
[2018-01-29] MEDS ORDERED: NALOXONE HCL 0.4 MG/ML INJ IVP PRN (14:04)
[2018-01-29] MEDS ORDERED: ACETAMINOPHEN 500 MG TAB PO PRN (14:04)
[2018-01-29] MEDS ORDERED: ONDANSETRON 4 MG/2 ML VIAL IVP PRN (14:04)
[2018-01-29] MEDS ORDERED: fentaNYL 100 MCG/2 ML INJ IVP PRN (14:04)
[2018-01-29] MEDS ORDERED: DEXAMETHASONE 4 MG/ML VIAL IVP PRN (14:04)
[2018-01-29] MEDS ORDERED: PROMETHAZINE HCL 25 MG/ML INJ IVP PRN (14:04)
[2018-01-29] MEDS ORDERED: LR 500 ML IV PRN (14:04)
[2018-01-29] MEDS ORDERED: oxyCODONE IR 5 MG TAB PO PRN (14:04)
[2018-01-29] MEDS ORDERED: epHEDrine SULFATE 10 MG/ML SYR IVP PRN (14:04)
[2018-01-29] MEDS ORDERED: PHENYLEPHRINE HCL 100 MCG/ML SYR IVP PRN (14:04)
[2018-01-29] MEDS ORDERED: HYDROCODONE/APAP 5/325 TAB PO PRN (14:04)
--- NOTE | 2018-01-29 14:07 | POSTANESTH ---
Post Anesthetic Evaluation Cardiovascular Status: Normal, Stable Respiratory Status: Normal, Stable Level of Consciousness/Mental Status: Can Participate in Eval Pain Control: Adequate, Prn Tx Ordered Nausea/Vomiting Control: Adequate, Prn Tx Ordered Complications Possibly Related to Anesthesia: None Noted
--- NOTE | 2018-01-29 14:07 | PDANEPAE ---
ANE Past Medical History - Pulmonary History Hx Oxygen in Use at Home: No Hx Sleep Apnea: No - Endocrine History Hx Diabetes: Yes ANE Review of Systems Review of Systems: - Exercise capacity METS (RN): 5 METS ANE Patient History - Allergies Allergies/Adverse Reactions: Penicillins Allergy (Severe, Verified 01/14/17 22:40) THROAT SWELLS, RASH kiwi Allergy (Verified 01/15/17 20:04) THROAT SWELLS mushroom Allergy (Verified 01/15/17 20:04) THROAT SWELLS turkey Allergy (Verified 01/15/17 20:04) THROAT SWELLS - Anes Hx Anes Hx: no prior problems - Smoking Hx Smoking Status: Current every day smoker ANE Labs/Vital Signs - Vital Signs Blood Pressure: 122/72 Respiratory Rate: 20 O2 Sat (%): 98 ANE Physical Exam - ASA Status ASA Status: II, E (unable to assess secondary to active hemorrhaging and need for emergent surgery) ANE Anesthesia Plan Anesthesia Plan: MAC Total IV Anesthesia: Yes
[2018-01-29] MEDS: IBUPROFEN 600 MG TAB PO PRN (17:18)
[2018-01-29] MEDS: DOCUSATE SODIUM 100 MG CAP PO PRN (17:19)
[2018-01-29] MEDS ORDERED: CLINDAMYCIN 900 MG/DEXTROSE 50 ML IV ONE (17:56)
[2018-01-29] MEDS ORDERED: GENTAMICIN SULFATE 350 MG in D5W 100 ML IV ONE (17:58)
[2018-01-29] MEDS: HYDROCODONE/APAP 5/325 TAB PO PRN ×2 (20:53→23:17)
[2018-01-30 06:17] LABS: PLATELET COUNT 182 10^3/uL (150-400)
[2018-01-30 08:28] VITALS: BP 118/58
[2018-01-30] MEDS: IBUPROFEN 600 MG TAB PO PRN ×2 (08:36→17:23)
[2018-01-30] MEDS: DOCUSATE SODIUM 100 MG CAP PO PRN (08:36)
--- NOTE | 2018-01-30 13:42 | ASMTLACE ---
[facility]OS[facility] Length of stay for Answers: 1 day current admission Acuity / Level of Answers: Yes Care: Did the patient have an inpatient admission? Comorbidities - select Answers: Other Notes: Patient had home all that apply delivery, baby shortly after # of Emergency department Answers: 0 visits in the last 6 months Social determinants Answers: History of trauma (PTSD, child abuse, domestic violence, etc.) Mental health diagnosis (anxiety, depression, pers onality disorders, etc.) Lack of community resources and/or lack of social support (no pcp, lives alone, transportation, dipika d) Score: 15 Date Signed: 01/30/2018 01:42 PM Electronically Signed By:Chantelle Rivera LCSW
--- NOTE | 2018-01-30 13:42 | OBPP ---
Progress Note Assessment/Plan: Assessment:42 PPD #1 s/p unattended at home, c/b shoulder dystocia and peripartum . Complicated mental health and social history with no custody of other children - see social work note. Declines all offers of contraception today. Plan: Will dc home today. precautions reviewed. Reviewed strict, "nothing in the vagina" instructions, for at least 6 weeks. Reviewed recommendation to attend appointment tomorrow with Mental Health provider at [facility], who has also been informed by telephonic nurse case manager today to make sure contraception is accesible. Recommend 6 week pp check with Clinical or with [facility]. Christal Friend MD, FACOG 01/30/18 13:42 01/30/18 13:44 Subjective/ Course: 01/30/18 13:40 Pt doing well. Has met with [facility] for about an hour. Today - after discussing options, has declined the offers of IUD, Nexplanon, or Depo Provera injections prior to discharge today. Prefers to wait "until my uterus has healed", despite reviewing that a IUD is standard of care. Minimal bleeding, is "spotty". Objective: 01/30/18 06:00 Patient ABO/Rh B NEGATIVE 01/29/18 23:04 Temp Pulse Resp BP Pulse Ox 36.7 C 90 16 118/58 L 96 01/30/18 08:26 01/30/18 08:26 01/29/18 22:55 01/30/18 08:26 01/29/18 22:55 Gen - flat affect, does not appear upset about her recent loss CV - RRR chest - CTAB abd - soft, + BS, fundus firm at u-2 ext - trace edema, calves NT Records from [facility] obtained - did have neg HIV, HepBsAg, GC/ Chl as part of records from this . Uterine Position/Fundal Height: Umbilicus -3 Uterine Tone: Firm
--- NOTE | 2018-01-30 13:53 | OBGCSDC ---
General Delivery Information - General Info : 6 Para: 6 Type: Vaginal L&D Analgesia/Anesthesia Type: General Admission Date: 01/29/18 Labs: Patient ABO/Rh B NEGATIVE 01/29/18 23:04 Hct 26.2 % (38.0-47.0) L 01/30/18 06:00 - Hospital Course Antepartum: 01/30/18 13:53 delivered at home, arrived by EMS. . : 01/30/18 13:40 Pt doing well. Has met with senior insight manager for about an hour. Today - after discussing options, has declined the offers of IUD, Nexplanon, or Depo Provera injections prior to discharge today. Prefers to wait "until my uterus has healed", despite reviewing that a IUD is standard of care. Minimal bleeding, is "spotty". - Delivery Providers Surgeon: Anil Cho Discharge Information - Discharge Information Condition: Good
--- NOTE | 2018-01-30 14:19 | ASMTCASEMG ---
Living Arrangements What is your living Answers: With Spouse arrangement? Who do you live with? Type Of Residence What kind of residence do Answers: Apartment you live in? Type of Residence Facility Name Notes: Patient lives in [address] housing with her . Discharge Plan Comments Coordination Status Comments Notes: Met with patient at Dr. Friend's request. Patient had a home that became complicted and the baby was pronounced DOA when they arrived in our ER. Patient has five other children all of which are in foster care with [employer]. Patient had a somewhat flat affect when the conversation was started. Patient has a hx of developmental delay and Bipolar Disorder. I requested to speak with patient alone, both her mother and were initially resistent. They did leave the room, ultimately. Patient states she would like to be more independent of both her and mother. Patient was distressed about her 4 yo daughter, who her mother convinced she should "leave at nephrology social worker" because at the time she was losing her apartment. Patient states she never should have listened to her mother since she had been parenting successfully this child for a period of time. Patient claims she had had her since but she was reluctant to answer further questioning about that and it was unclear if this was accurate. Patient states she wanted a home with noone involved so they wouldn't take this baby from her. Patient states her is doing ok. She states she wanted him to get a vasectomy but he refuses. She does not want to get a tubal ligation. Patient associates access to resources, attention from others, and ability to have some control in her circumstances with having a child. control was discussed as a way to demonstrate responsibility towards getting some visitation with her current children in foster care. She wants to make plans but doesn't feel capable of doing so on her own. Patient is seeing a mental health counselor with [facility] and has been seen at [facility]. Patient states she might consider an IUD and/or a "patch". (Depo?) Patient was informed the Dr. heredia would be glad to help her with control today. Patient became more expressive when she talked about what happened during the of this child. She was visibly confused and mildly distressed when talking about the neighbor who came over while she was struggling to give in the bathtub. She states the neighbor was flipping the child from side to side and his head was flopping and not supported. She said the neighbor was a friend of her mother's and she doesn't know if she had any training or not. Patient states she was trying to trust her mother. (this was reported to the Family Crimes Computer Operations Specialist by this CM) Patient has been seen at [facility] and CM got her an appointment for tomorrow January at 11:40AM for follow up and hopefully she will agree to control tomorrow. She was encouraged to resume her psych meds and follow up counseling with [facility]. No further needs at this time. CM available if needs arise. Date Signed: 01/30/2018 02:19 PM Electronically Signed By:Chantelle Rivera LCSW
== END 2018-01-30 17:00 | disposition home or self-care (01) ==
LOC: INTOOBSV 13:10 → FLD 13:10
PROVIDERS: ADMIT Obstetrics & Gynecology; ATTEND Obstetrics & Gynecology
DX: O70.1 Second degree perineal laceration during delivery (principal); O73.0 Retained placenta without hemorrhage; Z3A.38 38 weeks gestation of pregnancy; Z37.0 Single live birth
CPT/HCPCS: 80307; G0378; G0480; J1580